=== PATIENT | female | born 1975 | race Caucasian/White ===

== ENCOUNTER 2018-02-25 22:59 | Observation (INO) | payer OTHER ==
[~2018-02-25] VITALS: Ht 167.6 cm; Wt 85.6 kg
[2018-02-26] VITALS (104 sets, daily range): BP systolic 98–132; BP diastolic 50–82; PULSE 51–64; TEMP 97.5–98.4; O2SAT 95–100
[2018-02-26 01:09] LABS: PROTHROMBIN TIME 11.5 SECONDS (9.7-12.8)
[2018-02-26 01:12] LABS: PARTIAL THROMBOPLASTIN TIME 40.3 SECONDS (26.0-37.0)
[2018-02-26 01:54] LABS: TROPONIN-I 0.758 ng/mL (0.000-0.034)
[2018-02-26] MEDS ORDERED: PRINIVIL10 MG PO (02:52)
[2018-02-26 03:57] LABS: BASO % 0.5 % (0.0-2.0); EOS # 0.2 (0.0-0.7); EOS % 2.5 % (0-4.0); GRAN # 4.7 (1.4-6.5); GRAN % 55.1 % (42.2-75.2); LYMPH # 3.2 (1.2-3.4); MEAN CELL VOLUME 87 fl (80.0-100.0); MEAN CORPUSCULAR HGB CONC 33 g/dl (33.0-37.0); MEAN PLATELET VOLUME 10.4 fl (7.4-10.4); MONO # 0.4 (0.1-0.6); MONO % 4.7 % (1.7-9.3); PLATELET COUNT 201 K/mm3 (130-400); RED BLOOD COUNT 4.06 M/mm3 (4.10-5.30); REDCELL DISTRIBUTION WIDTH-CV 14.7 % (11.5-14.5)
[2018-02-26 03:59] LABS: HEMATOCRIT 35.1 % (37.0-47.0); HEMOGLOBIN 11.4 g/dl (12.5-16.0); MEAN CORPUSCULAR HEMOGLOBIN 28 pg (27.0-31.0)
[2018-02-26 04:07] LABS: ALBUMIN 3.6 gm/dL (3.5-5.0); BILIRUBIN,TOTAL 0.3 mg/dL (0.0-1.0); CALCIUM 8.9 mg/dL (8.4-10.2); CREATININE, serum 0.7 mg/dL (0.52-1.25); POTASSIUM 3.6 mmol/L (3.4-5.0); TOTAL PROTEIN 6.8 gm/dL (6.4-8.2)
[2018-02-26 04:22] LABS: TROPONIN-I 0.67 ng/mL (0.000-0.034)
[2018-02-26] MEDS ORDERED: TOPROL XL 25MG25 MG PO (17:40)
[2018-02-26] MEDS ORDERED: ASPIRIN E.C. 8181 MG PO (17:41)
[2018-02-26 18:16] LABS: CHOLESTEROL RISK RATIO 5.3
[2018-02-27] MEDS ORDERED: MELAT3MGTAB (11:28)
[2018-02-27] MEDS ORDERED: NORCO 325 MG-51 TAB PO (16:58)
== END 2018-02-26 18:25 | disposition home or self-care (01) ==
LOC: ICU 22:59
PROVIDERS: Nurse Practitioner Family
DX: I21.4 Non-ST elevation (NSTEMI) myocardial infarction (principal); I10 Essential (primary) hypertension; E66.9 Obesity, unspecified; Z68.30 Body mass index [BMI] 30.0-30.9, adult; Z82.49 Family history of ischemic heart disease and other diseases of the circulatory system; Z88.2 Allergy status to sulfonamides; J45.909 Unspecified asthma, uncomplicated; K21.9 Gastro-esophageal reflux disease without esophagitis; M19.90 Unspecified osteoarthritis, unspecified site; Z79.82 Long term (current) use of aspirin
CPT/HCPCS: J2250; J2270; J2405; J7030

== ENCOUNTER 2018-02-27 11:21 | Emergency (ER) | payer OTHER ==
[~2018-02-27] VITALS: Ht 167.6 cm; Wt 86.4 kg
[2018-02-27 11:21] VITALS: TEMP 97.1
[~2018-02-27 11:21] MED LIST: ASPIRIN E.C. 8181 MG PO; PRINIVIL10 MG PO; TOPROL XL 25MG25 MG PO
[2018-02-27] MEDS ORDERED: MELAT3MGTAB (11:28)
[2018-02-27 11:43] LABS: BASO % 0.6 % (0.0-2.0); EOS # 0.2 (0.0-0.7); EOS % 2.5 % (0-4.0); GRAN # 4.6 (1.4-6.5); GRAN % 65.3 % (42.2-75.2); LYMPH # 1.8 (1.2-3.4); LYMPH % 25.2 % (20.0-51.0); MEAN CELL VOLUME 86 fl (80.0-100.0); MEAN CORPUSCULAR HGB CONC 33 g/dl (33.0-37.0); MEAN PLATELET VOLUME 10.7 fl (7.4-10.4); MONO # 0.4 (0.1-0.6); PLATELET COUNT 227 K/mm3 (130-400); REDCELL DISTRIBUTION WIDTH-CV 14.8 % (11.5-14.5)
[2018-02-27 11:44] LABS: HEMATOCRIT 35.3 % (37.0-47.0); HEMOGLOBIN 11.6 g/dl (12.5-16.0); MEAN CORPUSCULAR HEMOGLOBIN 28 pg (27.0-31.0)
[2018-02-27 11:47] LABS: PROTHROMBIN TIME 11.6 SECONDS (9.7-12.8)
[2018-02-27 11:50] LABS: PARTIAL THROMBOPLASTIN TIME 27.1 SECONDS (26.0-37.0)
[2018-02-27 11:55] LABS: ALBUMIN 3.7 gm/dL (3.5-5.0); BILIRUBIN,TOTAL 0.4 mg/dL (0.0-1.0); CREATININE, serum 0.71 mg/dL (0.52-1.25); POTASSIUM 3.4 mmol/L (3.4-5.0); TOTAL PROTEIN 7.1 gm/dL (6.4-8.2)
[2018-02-27 12:09] LABS: TROPONIN-I 0.187 ng/mL (0.000-0.034)
[2018-02-27] MEDS ORDERED: NORCO 325 MG-51 TAB PO (16:58)
[2018-02-27 17:17] VITALS: BP 122/70; PULSE 64
== END 2018-02-27 17:18 | disposition home or self-care (01) ==
LOC: COL.ER 11:21
PROVIDERS: Emergency Medicine
DX: R07.9 Chest pain, unspecified (principal); R06.02 Shortness of breath; R79.89 Other specified abnormal findings of blood chemistry; I10 Essential (primary) hypertension; E66.9 Obesity, unspecified; Z98.890 Other specified postprocedural states
CPT/HCPCS: J2405; J7030; Q9967

== ENCOUNTER → 2019-02-14 | Outpatient (CLI) | payer OTHER ==
[~2019-02-14] MED LIST changes: +MELAT3MGTAB; +NORCO 325 MG-51 TAB PO
== END ==
LOC: COL.PUL 09:55
DX: R05 Cough (principal)
CPT/HCPCS: J7674